=== PATIENT | female | born 1975 | race African-American/Black ===

== ENCOUNTER 2024-02-21 06:15 | Emergency (ER) | payer OTHER ==
[2024-02-21 06:35] VITALS: BMI 37.5
[2024-02-21] MEDS: ACETAMINOPHEN 500 MG TABLET (FP) PO ONE (09:16)
[2024-02-21] MEDS ORDERED: ACETAMINOPHEN 500 MG TABLET (FP) ONE (09:18)
[2024-02-21] MEDS: ACETAMINOPHEN 325 MG TABLET (FP) PO ONE (09:24)
[2024-02-21 10:33] VITALS: BP 127/67; PULSE 72; RESP 20; TEMP 98
== END 2024-02-21 11:00 | disposition home or self-care (01) ==
LOC: JER 06:15
DX: M25.512 Pain in left shoulder (principal); R20.0 Anesthesia of skin; R20.2 Paresthesia of skin
CPT/HCPCS: 73030-TC-LT-FY; 93005; 93010; 99284-25

== ENCOUNTER 2024-07-29 09:13 | Day surgery (SDC) | payer OTHER ==
[2024-07-16 15:03] VITALS: BMI 37.8
[2024-07-29] MEDS ORDERED: ROPIVACAINE HCL/PF 100 MG/20 ML VIAL ONE (11:05)
[2024-07-29] MEDS ORDERED: FENTANYL CITRATE/PF 50 MCG/ML VIAL ONE (11:05)
[2024-07-29] MEDS ORDERED: MIDAZOLAM HCL 2 MG/2 ML SINGLE DOSE VIAL ONE (11:05)
[2024-07-29] MEDS ORDERED: DEXAMETHASONE SOD PHOSPHATE 4 MG/1 ML VIAL ONE (11:27)
[2024-07-29] MEDS ORDERED: ROCURONIUM BROMIDE 50 MG/5 ML SYRINGE ONE (11:27)
[2024-07-29] MEDS ORDERED: PROPOFOL 20 ML ONE (11:27)
[2024-07-29] MEDS ORDERED: LIDOCAINE HCL/PF 2% SDV 5ML VIAL ONE (11:27)
[2024-07-29] MEDS ORDERED: ceFAZolin SODIUM 1 GM VIAL ONE (11:52)
[2024-07-29] MEDS ORDERED: SEVOFLURANE 250 ML BTL ONE (11:58)
[2024-07-29] MEDS ORDERED: ONDANSETRON 4 MG/2 ML VIAL ONE (12:07)
[2024-07-29] MEDS ORDERED: GLYCOPYRROLATE 0.2 MG/1 ML VIAL ONE (13:05)
[2024-07-29] MEDS ORDERED: NEOSTIGMINE METHYLSULFATE 0.5 MG/1 ML - 10 ML MDV ONE (13:05)
[2024-07-29] MEDS ORDERED: oxyCODONE HCL 5 MG TABLET PO PRN ×2 (13:30)
[2024-07-29] MEDS ORDERED: KETOROLAC TROMETHAMINE 30 MG/1 ML VIAL IVPUSH SCH (13:30)
[2024-07-29] MEDS ORDERED: ONDANSETRON 4 MG/2 ML VIAL IVPUSH PRN (13:31)
[2024-07-29] MEDS ORDERED: ACETAMINOPHEN INJECTION 100 ML ONE (13:43)
[2024-07-29] MEDS: ACETAMINOPHEN 1000 MG/100 ML BAG IVPB ONE (13:45)
[2024-07-29] MEDS ORDERED: LACTATED RINGERS SOLUTION 1,000 ML IV SCH (13:45)
[2024-07-29 14:44] VITALS: RESP 18; TEMP 97.2
[2024-07-29 15:21] VITALS: BP 114/71; PULSE 74
== END 2024-07-29 15:25 | disposition home or self-care (01) ==
LOC: FASU 09:13
PROVIDERS: ATTEND Orthopaedic Surgery Sports Medicine
PROC: 0LS44ZZ Reposition Left Upper Arm Tendon, Percutaneous Endoscopic Approach (ICD-10-PCS; 2024-07-29)
PROC: 0RBK4ZZ Excision of Left Shoulder Joint, Percutaneous Endoscopic Approach (ICD-10-PCS; 2024-07-29)
PROC: 0PBB4ZZ Excision of Left Clavicle, Percutaneous Endoscopic Approach (ICD-10-PCS; principal; 2024-07-29 12:18)
DX: M75.22 Bicipital tendinitis, left shoulder (principal); M75.02 Adhesive capsulitis of left shoulder; M65.812 Other synovitis and tenosynovitis, left shoulder; S43.432D Superior glenoid labrum lesion of left shoulder, subsequent encounter; X58.XXXD Exposure to other specified factors, subsequent encounter
CPT/HCPCS: 81025; 94760; C1713; J0131